=== PATIENT | female | born 1955 | race Caucasian/White ===

== ENCOUNTER 2016-04-26 06:05 | Emergency (ER) | payer BC, OTHER ==
[2016-04-26] MEDS ORDERED: fentaNYL 100 MCG/2 ML SDV IVPUSH ONE ×2 (06:08→07:03)
[2016-04-26] MEDS ORDERED: Lactated Ringers 1,000 ML IV SCH (06:45)
--- NOTE | 2016-04-26 06:47 | EDM.PDOC ---
ED HPI Trauma - General Chief Complaint: Upper Extremity Injury/Pain Stated Complaint: R)shoulder pain Time Seen by Provider: 04/26/16 06:27 Source: Reports: Patient History Limitations: Reports: No limitations - History of Present Illness INITIAL COMMENTS - FREE TEXT/NARRATIVE: Patient presents with complaints of right shoulder pain after pulling on a freezer door at work. States the freezer door does stick and she tried to yank it open. [place] her shoulder pop again and now has had pain ongoing since. Occurred approximately 0450 this am. Has dislocated her shoulder before after a fall and feels very similar to this. Has limited range of motion. Does have good sensation to her fingers. No injuries or concerns elsewhere. Occurred When: just prior to arrival Occurred Where: work Severity: severe Pain/Injury Location: Reports: upper extremity, right Consciousness: Reports: no loss of consciousness Associated Symptoms: Reports: no other symptoms Allergies/ADRs: Allergies No Known Allergies Allergy (Verified 12/27/15 15:40) Home Medications: Ambulatory Orders Calcium Carbonate [Calcium] 1,500 mg PO DAILY 03/26/13 [Confirmed 04/26/16] Cholecalciferol (Vitamin D3) [Vitamin D] 2,000 unit PO DAILY 03/26/13 [ Confirmed 04/26/16] Fluticasone/Salmeterol [Advair 250-50 Diskus] 2 puff INH BID 03/26/13 [ Confirmed 04/26/16] Hydrocodone/Acetaminophen [Hydrocodon-Acetaminophen 5-300] 1 each PO DAILY PRN 03/26/13 [Confirmed 04/26/16] Ibuprofen [Advil] 200 mg PO DAILY PRN 03/26/13 [Confirmed 04/26/16] Magnesium Oxide [Magnesium] 400 mg PO DAILY 03/26/13 [Confirmed 04/26/16] Multivitamin [Multi Vitamin Daily] 1 each PO DAILY 03/26/13 [Confirmed 04/26/16] Simvastatin [Zocor] 20 mg PO DAILY 03/26/13 [Confirmed 04/26/16] Past Medical History Respiratory History: Reports: COPD Genitourinary History: Reports: Renal calculus - Past Surgical History GI Surgical History: Reports: Cholecystectomy Musculoskeletal Surgical History: Reports: Hip replacement, Knee replacement Social & Family History - Family History Family Medical History: Noncontributory - Tobacco Use Smoking Status *Q: Current Every Day Smoker Years of Tobacco use: 40 Packs/Tins Daily: 1 - Caffeine Use Caffeine Use: Reports: None - Recreational Drug Use Recreational Drug Use: No Review of Systems - Review of Systems Review Of Systems: ROS reveals no pertinent complaints other than HPI. Trauma Exam - Physical Exam Exam: See Below Exam Limited By: No limitations General Appearance: Reports: alert, moderate distress Head: Reports: normocephalic Respiratory Exam: Reports: decreased breath sounds, wheezing Cardiovascular: Reports: regular rate, rhythm Extremities: Reports: bony-point tenderness, pain with movement, other (obvious deformity to right shoulder) Course - Vital Signs Last Recorded V/S: Last Vital Signs Temp 95.6 F 04/26/16 07:07 Pulse 67 04/26/16 07:07 Resp 20 04/26/16 07:07 BP 115/76 04/26/16 07:07 Pulse Ox 96 04/26/16 07:07 - Orders/Labs/Meds Orders: Active Orders 24 hr Category Date Time Status Shoulder 1V Rt [CR] Stat Exams 04/26/16 07:13 Taken Shoulder Comp Rt [CR] Stat Exams 04/26/16 06:35 Taken Lactated Ringers [Ringers, Lactated] 1,000 ml Med 04/26/16 06:45 Active IV ASDIRECTED Medication Orders Lactated Ringer's (Ringers, Lactated) 1,000 mls @ 999 mls/hr IV ASDIRECTED ANNABEL Last Admin: 04/26/16 07:27 Dose: 999 mls/hr Meds: Medications Generic Name Dose Route Start Last Admin Trade Name Freq PRN Reason Stop Dose Admin Lactated Ringer's 1,000 mls @ 999 mls/hr 04/26/16 06:45 04/26/16 07:27 Ringers, Lactated IV 999 mls/hr ASDIRECTED ANNABEL Administration Discontinued Medications Generic Name Dose Route Start Last Admin Trade Name Freq PRN Reason Stop Dose Admin Diazepam 5 mg 04/26/16 06:33 04/26/16 06:38 Valium IVPUSH 04/26/16 06:34 5 mg ONETIME ONE Administration Fentanyl 50 mcg 04/26/16 06:08 04/26/16 06:17 Sublimaze IVPUSH 04/26/16 06:09 50 mcg ONETIME ONE Administration Fentanyl 50 mcg 04/26/16 07:03 04/26/16 07:05 Sublimaze IVPUSH 04/26/16 07:04 50 mcg ONETIME ONE Administration - Re-Assessments/Exams Free Text/Narrative Re-Assessment/Exam: 04/26/16 07:14 Patient has been given Fentanyl 50 mcg x2 and Valium 5 mg IV after xrays noted anterior dislocation. Patient relaxed. Reduction attempts done by this provider and nurse. [place] it pop back. Patient expresses relief. Vital signs monitored. Patient has been on oxygen since first Fentanyl dose as her sats do drop easily to high 80s on room air. Post reduction films show good alignment now. Sling placed. Will finish liter of fluids, watch oxygen level and discharge home when appropriate. Departure - Departure Time of Disposition: 09:28 Disposition: Home, Self-Care 01 Condition: good Clinical Impression: Dislocation of shoulder, anterior, right, closed Forms: ED Department Discharge Additional Instructions: 1. Rest 2. Shoulder sling until recheck appointment 3. Ice to area today 4. [place] 5/325 1-2 tabs every hours as needed for pain 5. See Dr. Harvey on May 02 at 2:45 pm 6. Physical Therapy at 1 pm on April 30 7. Notify us of concerns - My Orders Last 24 Hours: My Active Orders 04/26/16 06:35 Shoulder Comp Rt [CR] Stat 04/26/16 06:45 Lactated Ringers [Ringers, Lactated] 1,000 ml IV ASDIRECTED 04/26/16 07:13 Shoulder 1V Rt [CR] Stat - Assessment/Plan Last 24 Hours: My Active Orders 04/26/16 06:35 Shoulder Comp Rt [CR] Stat 04/26/16 06:45 Lactated Ringers [Ringers, Lactated] 1,000 ml IV ASDIRECTED 04/26/16 07:13 Shoulder 1V Rt [CR] Stat
[2016-04-26 07:08] VITALS: BP 115/76
== END 2016-04-26 09:45 | disposition home or self-care (01) ==
LOC: CC.ED 06:05
DX: S43.004A Unspecified dislocation of right shoulder joint, initial encounter (principal); F17.210 Nicotine dependence, cigarettes, uncomplicated; Z90.49 Acquired absence of other specified parts of digestive tract; Z79.899 Other long term (current) drug therapy; W19.XXXA Unspecified fall, initial encounter
CPT/HCPCS: 23650; 73020; 73030; 96361; 96374; 96375; 96376; 99283; J3010; J3360; J7120

== ENCOUNTER 2017-02-18 08:39 | Inpatient (IN) | payer BC ==
[2017-02-18] MEDS ORDERED: Ondansetron 4 MG/2 ML SDV IV PRN (09:24)
[2017-02-18] MEDS ORDERED: Temazepam 15 MG Cap PO PRN (09:24)
[2017-02-18] MEDS ORDERED: Magnesium Hydroxide 400 MG/5 ML Susp 30 ML Cup PO PRN (09:24)
[2017-02-18] MEDS ORDERED: Acetaminophen 325 MG Tab PO PRN (09:24)
[2017-02-18] MEDS ORDERED: Calcium Carbonate 500 MG Tab.Chew PO PRN (09:38)
[2017-02-18 10:23] LABS: CHLORIDE,CL 101 mEq/L (98-106); SODIUM,NA 142 mEq/L (136-145)
[2017-02-18] MEDS: Lactated Ringers 1,000 ML IV SCH ×2 (10:24→23:26)
[2017-02-18] MEDS: methylPREDNISolone Sodium Succinate 125 MG/2 ML SDV IVPUSH SCH ×2 (10:26→20:47)
[2017-02-18] MEDS: Levofloxacin/Dextrose 5%-Water 500 MG in Premix Bag 1 BAG IV SCH (10:27)
[2017-02-18] MEDS: Enoxaparin 40 MG/0.4 ML Syringe SUBCUT SCH (10:57)
[2017-02-18] MEDS ORDERED: Albuterol 8 GM Inhaler INH PRN (13:13)
[2017-02-18] MEDS ORDERED: Ibuprofen 200 MG Tab PO PRN (13:13)
[2017-02-18] MEDS: Albuterol/Ipratropium 3.0-0.5 MG/3 ML Neb Soln NEB SCH ×2 (16:27→20:50)
[2017-02-18] MEDS: Simvastatin 20 MG Tab PO SCH (20:46)
[2017-02-18] MEDS: Formoterol/Mometasone 200-5 MCG 8.8 GM Inhaler IH SCH (20:58)
[2017-02-19] MEDS: Calcium Carbonate 500 MG Tab.Chew PO SCH (09:30)
[2017-02-19] MEDS: Formoterol/Mometasone 200-5 MCG 8.8 GM Inhaler IH SCH ×2 (09:30→19:53)
[2017-02-19] MEDS: Levofloxacin/Dextrose 5%-Water 500 MG in Premix Bag 1 BAG IV SCH (09:30)
[2017-02-19] MEDS: Multivitamin Tab PO SCH (09:30)
[2017-02-19] MEDS: Enoxaparin 40 MG/0.4 ML Syringe SUBCUT SCH (09:30)
[2017-02-19] MEDS: Albuterol/Ipratropium 3.0-0.5 MG/3 ML Neb Soln NEB SCH ×4 (09:30→19:54)
[2017-02-19] MEDS: methylPREDNISolone Sodium Succinate 125 MG/2 ML SDV IVPUSH SCH ×2 (09:30→19:54)
[2017-02-19] MEDS: Cholecalciferol (Vitamin D3) 1,000 Unit Tab PO SCH (09:30)
[2017-02-19 13:55] LABS: CHLORIDE,CL 103 mEq/L (98-106); SODIUM,NA 141 mEq/L (136-145)
[2017-02-19] MEDS: Simvastatin 20 MG Tab PO SCH (19:54)
[2017-02-20] MEDS: Lactated Ringers 1,000 ML IV SCH (01:07)
[2017-02-20] MEDS: Formoterol/Mometasone 200-5 MCG 8.8 GM Inhaler IH SCH ×2 (07:56→20:15)
[2017-02-20] MEDS: methylPREDNISolone Sodium Succinate 125 MG/2 ML SDV IVPUSH SCH ×2 (07:57→20:11)
[2017-02-20] MEDS: Multivitamin Tab PO SCH (07:57)
[2017-02-20] MEDS: Cholecalciferol (Vitamin D3) 1,000 Unit Tab PO SCH (07:58)
[2017-02-20] MEDS: Albuterol/Ipratropium 3.0-0.5 MG/3 ML Neb Soln NEB SCH ×4 (07:58→20:11)
[2017-02-20] MEDS: Enoxaparin 40 MG/0.4 ML Syringe SUBCUT SCH (07:58)
[2017-02-20] MEDS: Calcium Carbonate 500 MG Tab.Chew PO SCH (07:58)
[2017-02-20] MEDS: Levofloxacin/Dextrose 5%-Water 500 MG in Premix Bag 1 BAG IV SCH (08:00)
--- NOTE | 2017-02-20 08:20 | PN ---
DATE: 02/19/2017 S: Juliana Beckwith is in with a right lower lobe pneumonitis. We attempted to treat her as an outpatient, came in hypoxic. O: GENERAL: The patient is on oxygen. NECK: Supple. CHEST: Wheezing, little crepitus at right lower lung. CARDIAC: Sounds, no edema. ASSESSMENT: PNEUMONITIS. P: Continue IV therapy. VILLA/PHIL /[id number]
[2017-02-20 08:35] LABS: CHLORIDE,CL 103 mEq/L (98-106); SODIUM,NA 141 mEq/L (136-145)
--- NOTE | 2017-02-20 11:59 | PN ---
DATE: 02/20/2017 S: Juliana Beckwith is in with a right lower lobe pneumonitis. She said she is feeling better. She is still on oxygen. O: NECK: Supple. CHEST: Little crepitus, wheezing right lower lobe, but better. LABORATORY DATA: Today, white count is up a little bit, probably from the IV steroids. C-reactive protein looks okay. Rest of lab is fine. ASSESSMENT: PNEUMONITIS. P: Continue present therapy. VILLA/PHIL /[id number]
[2017-02-20] MEDS: Simvastatin 20 MG Tab PO SCH (20:14)
[2017-02-21] MEDS: Calcium Carbonate 500 MG Tab.Chew PO SCH (07:20)
[2017-02-21] MEDS: Albuterol/Ipratropium 3.0-0.5 MG/3 ML Neb Soln NEB SCH (07:20)
[2017-02-21] MEDS: methylPREDNISolone Sodium Succinate 125 MG/2 ML SDV IVPUSH SCH (07:21)
[2017-02-21] MEDS: Multivitamin Tab PO SCH (07:24)
[2017-02-21] MEDS: Levofloxacin/Dextrose 5%-Water 500 MG in Premix Bag 1 BAG IV SCH (07:24)
[2017-02-21] MEDS: Formoterol/Mometasone 200-5 MCG 8.8 GM Inhaler IH SCH (07:24)
[2017-02-21] MEDS: Enoxaparin 40 MG/0.4 ML Syringe SUBCUT SCH (07:24)
[2017-02-21] MEDS: Cholecalciferol (Vitamin D3) 1,000 Unit Tab PO SCH (07:24)
[2017-02-21 08:01] LABS: CHLORIDE,CL 102 mEq/L (98-106); SODIUM,NA 141 mEq/L (136-145)
--- NOTE | 2017-02-21 08:24 | DISCH ---
HOSPITAL COURSE: This is a 61-year-old female, we attempted to treat as an outpatient for a right lower lobe pneumonitis, became extremely hypoxic. Pulse oximetry was in the 80s. She was admitted to the hospital, placed on oxygen, IV steroids, intravenous antibiotics, RT treatments, responded nicely at the time of discharge. Lungs were relatively clear, but she still is on some oxygen and wanted to go home on oxygen. LABORATORY DATA: CBCs looked good. White count is mildly elevated from the steroids. Chemistries; panel 8 looked good. C-reactive proteins were 0.2. TSH was good. ProBNP was 69. DISPOSITION: The patient now discharged home. We will see her back in the clinic next Saturday. DISCHARGE MEDICATIONS: Home medications plus Levaquin 500 daily for 5 days and prednisone 20 daily for 5 days. DISCHARGE DIAGNOSIS: 1. RIGHT LOWER LOBE PNEUMONIA WITH HYPOXIA. 2. HYPERLIPIDEMIA. VILLA/PHIL /[id number]
--- NOTE | 2017-02-21 08:56 | PCM.SN ---
- Free Text/Narrative Note: Patient will be discharged home with home oxygen. Patient requires home oxygen due to hypoxia and RLL pneumonia. Patient unable to maintain O2 sat > 92% on RA prior to discharge. Will follow up in clinic with Dr. Harvey on .
[2017-02-21 09:03] VITALS: BP 124/66
== END 2017-02-21 12:10 | disposition home or self-care (01) | DRG 139 ==
LOC: UNDOADMIN 09:01 → CC.MS 09:01
PROVIDERS: ADMIT General Practice; ATTEND General Practice
DX: J18.9 Pneumonia, unspecified organism (principal); R09.02 Hypoxemia; R53.83 Other fatigue; J44.9 Chronic obstructive pulmonary disease, unspecified; E78.5 Hyperlipidemia, unspecified; Z79.899 Other long term (current) drug therapy
CPT/HCPCS: 36415; 71020; 80048; 80053; 81001; 83735; 83880; 84443; 85025; 85379; 85651; 86140; 87070; 87205; 93005; 94640; A9270-GY; J1650; J1956; J2930; J7120

== ENCOUNTER → 2020-07-15 | Day surgery (SDC) | payer MEDICARE, BC ==
[~2020-07-15] MED LIST: Lactated Ringers 1,000 ML IV SCH; Propofol 200 MG/20 ML SDV ONE
[2020-07-15 11:07] VITALS: BP 125/72; PULSE 76
--- NOTE | 2020-07-18 09:33 | OR ---
DATE OF OPERATION: 07/15/2020 PREOPERATIVE DIAGNOSIS: HISTORY OF POLYPS. POSTOPERATIVE DIAGNOSIS: HISTORY OF POLYPS. SURGEON: Luigi Mcbride MD PROCEDURE: DIAGNOSTIC COLONOSCOPY WITH FORCEPS POLYP REMOVAL X2. ANESTHESIA: MAC. COMPLICATIONS: None. SPECIMEN: Two sessile polyps, each approximately 4 mm. FINDINGS: 1. Full-length colonoscopy. 2. Sessile polyps x2. 3. Mild diverticulosis, sigmoid colon. RECOMMENDATIONS: Followup colonoscopy in 5 years. INDICATIONS: The patient has a history of polyps removed in the past. She also apparently has a family history of colon cancer. She is overdue for a surveillance scope. DESCRIPTION OF PROCEDURE: The patient was prepped and draped, placed in the left lateral decubitus position. A lubricated Olympus colonoscope was inserted and easily advanced to the cecum. Direct visualization of the ileocecal valve and appendiceal orifice was accomplished. The bowel prep was adequate. Upon withdrawal of the scope, the cecum and ascending colon appeared benign. Right at the hepatic flexure, the patient had a small 3 to 4 mm tubular adenoma removed in its entirety with 2 forceps biopsies. The rest of the transverse and descending colons were benign. The patient does have scattered diverticular disease throughout the sigmoid colon, mild in severity. No other sigmoid or rectosigmoid polyps, masses, ulceration, or bleeding sites were seen. There were no vascular abnormalities or signs of colitis. In the rectal vault, the patient had another 3 to 4 mm tubular adenoma also removed with 2 forceps biopsies in its entirety. Retroflexion of the scope showed a significant amount of perianal hemorrhoid disease, otherwise no other lesions. Air was suctioned and the scope removed without complication. TAMMY/PHIL /[id number]
== END ==
LOC: CC.SDS 08:41
PROVIDERS: ATTEND Family Medicine
DX: Z12.11 Encounter for screening for malignant neoplasm of colon (principal); D12.3 Benign neoplasm of transverse colon; D12.8 Benign neoplasm of rectum; K57.30 Diverticulosis of large intestine without perforation or abscess without bleeding; Z80.0 Family history of malignant neoplasm of digestive organs; J44.9 Chronic obstructive pulmonary disease, unspecified; E78.5 Hyperlipidemia, unspecified; G47.33 Obstructive sleep apnea (adult) (pediatric); E55.9 Vitamin D deficiency, unspecified; Z79.899 Other long term (current) drug therapy; Z90.49 Acquired absence of other specified parts of digestive tract; Z98.890 Other specified postprocedural states; F17.210 Nicotine dependence, cigarettes, uncomplicated
CPT/HCPCS: 00812; 45380; 88305; J2704; J7120